=== PATIENT | male | born 1980 | race Caucasian/White ===

== ENCOUNTER 2019-03-14 19:36 | Emergency (ER) | payer BC ==
--- NOTE | 2019-03-14 20:11 | EDM.PDOC ---
ED HPI GENERAL MEDICAL PROBLEM - General Chief Complaint: General Stated Complaint: ANXIETY Time Seen by Provider: 03/14/19 19:55 Source of Information: Reports: Patient, Old Records, RN History Limitations: Reports: No Limitations - History of Present Illness INITIAL COMMENTS - FREE TEXT/NARRATIVE: 38 yo male here with anxiety and is requesting medication for this. Does not have custody of his children and is not able to see them and this is bothering him. Does have a primary care provider he can follow up with after the holiday. Is not suicidal. Drove himself here. 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) (none) - Related Data Allergies Allergy/AdvReac Type Severity Reaction Status Date / Time prochlorperazine Allergy Nausea Verified 03/14/19 19:50 [From Compazine] Sulfa (Sulfonamide Allergy Cannot Verified 03/14/19 19:50 Antibiotics) Remember Home Meds: Home Meds NK [No Known Home Meds] 03/14/19 [History] Past Medical History HEENT History: Reports: Impaired Vision Cardiovascular History: Reports: Hypertension Respiratory History: Reports: Sleep Apnea Genitourinary History: Reports: Renal Calculus Neurological History: Reports: Concussion Psychiatric History: Reports: Addiction, Anxiety, Bipolar, Depression, Panic Attack, PTSD, Suicidal Ideation - Past Surgical History GI Surgical History: Reports: Cholecystectomy Social & Family History - Tobacco Use Smoking Status *Q: Current Every Day Smoker Years of Tobacco use: 25 Packs/Tins Daily: 1 - Caffeine Use Caffeine Use: Reports: Coffee Caffeine Use Comment: 1 cup per day - Alcohol Use Days Per Week of Alcohol Use: 1 Number of Drinks Per Day: 4 Total Drinks Per Week: 4 - Recreational Drug Use Recreational Drug Use: Yes Recreational Drug Type: Reports: Cocaine, Marijuana/Hashish, Methamphetamine Recreational Drug Use Frequency: Not Used In Over 6 Months ED ROS GENERAL - Review of Systems Review Of Systems: Comprehensive ROS is negative, except as noted in HPI. Constitutional: Reports: No Symptoms HEENT: Reports: No Symptoms Respiratory: Reports: No Symptoms Cardiovascular: Reports: No Symptoms GI/Abdominal: Reports: No Symptoms Psychiatric: Reports: Anxiety ED EXAM, GENERAL - Physical Exam Exam: See Below Exam Limited By: No Limitations General Appearance: Alert, WD/WN, No Apparent Distress Eye Exam: Bilateral Eye: Normal Inspection Ears: Normal External Exam, Normal Canal, Hearing Grossly Normal Ear Exam: Bilateral Ear: Auricle Normal, Canal Normal Nose: Normal Inspection, No Blood Throat/Mouth: Normal Inspection, Normal Lips, Normal Oropharynx, Normal Voice, No Airway Compromise Head: Atraumatic, Normocephalic Neck: Normal Inspection Respiratory/Chest: No Respiratory Distress, Lungs Clear, Normal Breath Sounds, No Accessory Muscle Use Cardiovascular: Regular Rate, Rhythm, No Edema Back Exam: Normal Inspection Extremities: Normal Inspection, Normal Range of Motion, Non-Tender, No Pedal Edema Neurological: Alert, Oriented, CN II-XII Intact, Normal Cognition, No Motor/ Sensory Deficits Psychiatric: Normal Affect, Anxious Skin Exam: Warm, Dry, Intact, Normal Color, No Rash Course - Vital Signs Last Recorded V/S: Last Vital Signs Temp 36.4 C 03/14/19 19:49 Pulse 84 03/14/19 19:49 Resp 16 03/14/19 19:50 BP 156/100 H 03/14/19 19:49 Pulse Ox 97 03/14/19 19:50 Departure - Departure Time of Disposition: 20:10 Disposition: Home, Self-Care 01 Condition: Good Clinical Impression: Anxiety - Discharge Information *PRESCRIPTION DRUG MONITORING PROGRAM REVIEWED*: No *COPY OF PRESCRIPTION DRUG MONITORING REPORT IN PATIENT ELISABET: No Referrals: Lisa Marrero DO [Primary Care Provider] - Additional Instructions: Use the lorazepam as directed. Recheck with your provider MARSHA. Return as needed. Sepsis Event Note - Evaluation Sepsis Screening Result: No Definite Risk - Focused Exam Vital Signs: Vital Signs Temp Pulse Resp BP Pulse Ox 03/14/19 19:50 16 97 03/14/19 19:49 36.4 C 84 16 156/100 H 97 Date Exam was Performed: 03/14/19 Time Exam was Performed: 20:06
== END 2019-03-14 20:15 | disposition home or self-care (01) ==
LOC: JP.ED 19:36
CPT/HCPCS: 99283

== ENCOUNTER 2021-06-23 13:01 | Emergency (ER) | payer BC, MEDICAID ==
[2021-06-23] MEDS ORDERED: Ketorolac 30 MG/ML SDV IM ONE (13:03)
[2021-06-23 13:17] VITALS: BP 155/86; PULSE 90
== END 2021-06-23 15:45 | disposition home or self-care (01) ==
LOC: JP.ED 13:01
DX: N13.2 Hydronephrosis with renal and ureteral calculous obstruction (principal); I10 Essential (primary) hypertension; Z88.8 Allergy status to other drugs, medicaments and biological substances; Z88.2 Allergy status to sulfonamides; Z72.0 Tobacco use
CPT/HCPCS: 36415; 74176; 74176-26; 80048; 81001; 96372; 99283; 99284-25; J1885

== ENCOUNTER 2024-09-13 07:11 | Day surgery (SDC) | payer MEDICAID ==
[2024-09-13] MEDS ORDERED: Propofol 200 MG/20 ML SDV ONE (07:20)
[2024-09-13] MEDS ORDERED: Midazolam 1 MG/ML 2 ML SDV ONE (07:20)
[2024-09-13] MEDS ORDERED: fentaNYL 100 MCG/2 ML SDV ONE (07:20)
[2024-09-13] MEDS: Lactated Ringers 1,000 ML IV SCH (08:06)
[2024-09-13 09:41] VITALS: BP 121/78; PULSE 68
== END 2024-09-13 09:48 | disposition home or self-care (01) ==
LOC: JP.SDS 07:11
PROVIDERS: ATTEND Surgery
DX: Z12.11 Encounter for screening for malignant neoplasm of colon (principal); I10 Essential (primary) hypertension
CPT/HCPCS: 45378; J2250; J2704; J3010; J7120; 00812-QZ